=== PATIENT | male | born 1995 | race Caucasian/White ===

== ENCOUNTER 2016-07-11 06:43 | Inpatient (IN) | payer OTHER ==
[2016-07-11] MEDS ORDERED: NORMAL SALINE 1000 ML 1,000 ML IV ONE (07:56)
--- NOTE | 2016-07-11 07:57 | ER Document Report ---
ED GI/ - General Chief Complaint: Abdominal Pain Stated Complaint: STOMACH PAIN Time seen by provider: 07:56 Mode of Arrival: Ambulatory Information source: Patient Notes: 20 yo male c/o RLQ abdominal pain for 2 days. worse last night causing vomit x 2. No diarrhea. Unknown last BM. Hurts more with movement and leg movement. No injury. No testicular or penis pain. No fever. Still has appendix. TRAVEL OUTSIDE OF THE [place] IN LAST 30 DAYS: No - Related Data Allergies/Adverse Reactions: No Known Allergies Allergy (Verified 07/11/16 09:15) Home Medications: Current Home Medications No Home Medications 07/11/16 [History] Past Medical History - General Information source: Patient - Social History Smoking Status: Current Every Day Smoker Chew tobacco use (# tins/day): Yes Frequency of alcohol use: None Drug Abuse: None Lives with: Spouse/Significant other Family History: Reviewed & Not Pertinent Patient has suicidal ideation: No Patient has homicidal ideation: No - Medical History Medical History: Negative Surgical Hx: Negative - Immunizations Hx Diphtheria, Pertussis, Tetanus Vaccination: No Review of Systems - Review of Systems Constitutional: No symptoms reported EENT: No symptoms reported Cardiovascular: No symptoms reported Respiratory: No symptoms reported Gastrointestinal: See HPI Genitourinary: No symptoms reported Male Genitourinary: No symptoms reported Musculoskeletal: No symptoms reported Skin: No symptoms reported Hematologic/Lymphatic: No symptoms reported Neurological/Psychological: No symptoms reported Physical Exam - Vital signs Vitals: Temp Pulse Resp BP Pulse Ox 98.1 F 69 14 135/75 H 96 07/11/16 06:51 07/11/16 06:51 07/11/16 06:51 07/11/16 06:51 07/11/16 06:51 Interpretation: Normal - General General appearance: Appears well, Alert In distress: None - HEENT Head: Normocephalic, Atraumatic Eyes: Normal Pupils: PERRL Neck: Supple - Respiratory Respiratory status: No respiratory distress Chest status: Nontender Breath sounds: Normal Chest palpation: Normal - Cardiovascular Rhythm: Regular Heart sounds: Normal auscultation Murmur: No - Abdominal Inspection: Normal Distension: No distension Bowel sounds: Normal Tenderness: Tender - rlq but moresore right flank Organomegaly: No organomegaly. No: Hepatomegaly, Splenomegaly - Back Back: Normal, Tender - right flank - Extremities General upper extremity: Normal inspection, Nontender, Normal color, Normal ROM , Normal temperature General lower extremity: Normal inspection, Nontender, Normal color, Normal ROM , Normal temperature, Normal weight bearing. No: Hue's sign - Neurological Neuro grossly intact: Yes Cognition: Normal Orientation: AAOx4 [place] Coma Scale Eye Opening: Spontaneous [place] Coma Scale Verbal: Oriented [place] Coma Scale Motor: Obeys Commands [place] Coma Scale Total: 15 Speech: Normal Motor strength normal: LUE, RUE, LLE, RLE Sensory: Normal - Psychological Associated symptoms: Normal affect, Normal mood - Skin Skin Temperature: Warm Skin Moisture: Dry Skin Color: Normal Skin irregularity: negative: Rash Course - Re-evaluation Re-evalutation: 07/11/16 09:[address] on [address] scan called to Dr. Mckeon and will call me right back. - Vital Signs Vital signs: Temp Pulse Resp BP Pulse Ox 98.1 F 63 16 138/77 H 98 07/11/16 21:28 07/11/16 21:28 07/11/16 21:28 07/11/16 21:28 07/11/16 21:28 - Laboratory Result Diagrams: 07/11/16 08:35 07/11/16 08:35 Laboratory results interpreted by me: 07/11/16 08:35 WBC 10.7 H Discharge - Discharge Clinical Impression: Acute appendicitis Qualifiers: Acute appendicitis type: unspecified acute appendicitis type Qualified Code(s) : K35.80 - Unspecified acute appendicitis Condition: Stable Disposition: ADMITTED INPATIENT Admitting Provider: Surgicalist Unit Admitted: Surgical Floor
[2016-07-11 08:53] LABS: APPEARANCE,URINE CLEAR; BILIRUBIN,URINE NEGATIVE (NEGATIVE); CALCIUM OXALATE CRYSTALS,URINE FEW /HPF; GLUCOSE, URINE NEGATIVE (NEGATIVE); KETONES,URINE NEGATIVE (NEGATIVE); LEUKOCYTE ESTERASE,URINE NEGATIVE (NEGATIVE); NITRITE,URINE NEGATIVE (NEGATIVE); PROTEIN,URINE NEGATIVE (NEGATIVE); URINE SPECIFIC GRAVITY 1.023; UROBILINOGEN,URINE NEGATIVE mg/dL (<2.0)
[2016-07-11 09:12] LABS: ABSOLUTE EOSINOPHILS # (AUTO) 0.2 10^3/uL (0.0-0.6); ABSOLUTE LYMPHOCYTES (AUTO) 1.7 10^3/uL (0.5-4.7); ABSOLUTE MONOCYTES (AUTO) 0.8 10^3/uL (0.1-1.4); BASOPHILS % (AUTO) 0.3 % (0-2); EOSINOPHILS % (AUTO) 1.9 % (0-6); HEMATOCRIT 40.5 % (37.9-51.0); HGB HCT DIFFERENCE 1.5; LYMPHOCYTES % (AUTO) 15.6 % (13-45); MEAN CORPUSCULAR HGB CONC 34.5 g/dL (32.0-36.0); MEAN CORPUSCULAR VOLUME 81 fl (80-97); MONOCYTES % (AUTO) 7.3 % (3-13); RED BLOOD COUNT 4.99 10^6/uL (4.35-5.55); RED CELL DISTRIBUTION WIDTH 12.6 % (11.5-14.0); SEGMENTED NEUTROPHILS % (AUTO) 74.9 % (42-78); WHITE BLOOD COUNT 10.7 10^3/uL (4.0-10.5)
[2016-07-11 09:28] LABS: ALANINE AMINOTRANSFERASE 49 U/L (21-72); ALBUMIN 4.1 g/dL (3.5-5.0); ALKALINE PHOSPHATASE 80 U/L (38-126); ANION GAP 16 (5-19); ASPARTATE AMINO TRANSFERASE 22 U/L (17-59); BILIRUBIN,TOTAL 0.5 mg/dL (0.2-1.3); BLOOD UREA NITROGEN 15 mg/dL (7-20); CALCIUM 9.2 mg/dL (8.4-10.2); CARBON DIOXIDE 25 mmol/L (22-30); CHLORIDE 102 mmol/L (98-107); CREATININE RESULT 0.85 mg/dL (0.52-1.25); GLUCOSE 96 mg/dL (75-110); POTASSIUM 4.3 mmol/L (3.6-5.0); SODIUM 142.7 mmol/L (137-145); TOTAL PROTEIN 6.6 g/dL (6.3-8.2)
[2016-07-11] MEDS ORDERED: VECURONIUM BROMIDE INJ 10 MG VIAL IV ONE (12:16)
[2016-07-11] MEDS ORDERED: NEOSTIGMINE METHYLSULFATE 10 MG/10 ML VIAL ONE (12:16)
[2016-07-11] MEDS ORDERED: DEXAMETHASONE SOD PHOSPHATE INJ 4 MG/1 ML VIAL ONE (12:16)
[2016-07-11] MEDS ORDERED: GLYCOPYRROLATE INJ 0.4 MG/2 ML VIAL ONE (12:16)
[2016-07-11] MEDS ORDERED: LIDOCAINE 2% INJ-PF (20 MG/ML) 10 ML AMPUL ONE (12:16)
[2016-07-11] MEDS ORDERED: ONDANSETRON HCL INJ/PF 4 MG/2 ML SDV ONE (12:16)
[2016-07-11] MEDS ORDERED: SUCCINYLCHOLINE CHLORIDE INJ 200 MG/10 ML VIAL ONE (12:16)
[2016-07-11] MEDS ORDERED: RINGERS SOLUTION,LACTATED 1,000 ML IV PRN (13:24)
[2016-07-11] MEDS ORDERED: PROPOFOL INJ 200 MG/20 ML VIAL IV ONE (14:14)
[2016-07-11] MEDS ORDERED: MIDAZOLAM 2 MG/2 ML INJ ONE (14:14)
[2016-07-11] MEDS ORDERED: FENTANYL CITRATE INJ/PF 250 MCG/5 ML AMPULE ONE (14:14)
[2016-07-11] MEDS ORDERED: LIDOCAINE 1% INJ-PF (10 MG/ML) 30 ML SDV ONE (14:24)
[2016-07-11] MEDS ORDERED: BUPIVACAINE HCL 0.25% /EPINEPHRINE INJ/PF 30 ML SDV ONE (14:24)
--- NOTE | 2016-07-11 14:43 | PDOC H&P ---
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 The pain was in the right lower quadrant. The pain was 1/10. The pain continued to worsen throughout the day on Saturday, throughout the day on Saturday, through the night and into Saturday morning. He had nausea and vomiting Saturday evening 2. The pain is made worse with movement. Although the pain started out minor in severity on Saturday, on Saturday night and Saturday morning the pain was 8/10. The pain remained in his right lower quadrant and did not radiate. He denies fevers, chills, dizziness, lightheadedness, headaches, vision changes, seizures, tremors , chest pain, shortness of breath, leg swelling, pain with defecation, pain with urination, blood in the stools, blood in his urine, loss of appetite. Past Medical History Medical History: None Psychiatric Medical History: Denies: Depression Past Surgical History Past Surgical History: Reports: Other - [place] teeth removal Social History Information Source: Patient Lives with: Spouse/Significant other - , 19 weeks Smoking Status: Current Every Day Smoker Cigarettes Packs Per Day: 0.5 Frequency of Alcohol Use: Rare - 6 beers per month Hx Recreational Drug Use: No Drugs: None Hx Prescription Drug Abuse: No - Advance Directive Resuscitation Status: Full Code Family History Family History: DM, Hypertension Parental Family History Reviewed: Yes Children Family History Reviewed: NA Sibling(s) Family History Reviewed.: Yes Medication/Allergy Home Medications: No Home Medications 07/11/16 Allergies/Adverse Reactions: No Known Allergies Allergy (Verified 07/11/16 09:15) Review of Systems All systems: reviewed and no additional remarkable complaints except as stated Physical Exam Vital Signs: Temp Pulse Resp BP Pulse Ox 98.6 F 75 16 125/72 100 07/11/16 13:31 07/11/16 13:31 07/11/16 13:31 07/11/16 13:31 07/11/16 13:31 General appearance: PRESENT: no acute distress Head exam: PRESENT: normocephalic Eye exam: PRESENT: EOMI Mouth exam: PRESENT: tongue midline Neck exam: ABSENT: JVD, lymphadenopathy, tenderness, thyromegaly Respiratory exam: PRESENT: clear to auscultation joni, unlabored Cardiovascular exam: PRESENT: RRR. ABSENT: diastolic murmur, systolic murmur GI/Abdominal exam: PRESENT: soft, tenderness - Severe pain in right lower quadrant. Minimal pain elsewhere.. ABSENT: distended, hernia Extremities exam: ABSENT: pedal edema, tenderness Musculoskeletal exam: ABSENT: deformity, tenderness Neurological exam: PRESENT: alert, oriented to person, oriented to place, oriented to time, oriented to situation Psychiatric exam: PRESENT: appropriate affect, normal mood Skin exam: ABSENT: jaundice, rash Results Impressions: Abdomen/Pelvis CT 07/11/16 08:35 IMPRESSION: Acute appendicitis Status: Image reviewed by me Assessment & Plan - Diagnosis (1) Acute appendicitis Qualifiers: Acute appendicitis type: unspecified acute appendicitis type Qualified Code(s): K35.80 - Unspecified acute appendicitis Is this a current diagnosis for this admission?: YesPlan: Recommended laparoscopic appendectomy. I discussed pre-and postoperative expectations and limitations. We discussed nonoperative management with antibiotics versus operative management. I discussed risks, benefits and alternatives. Risk included but not limited to , heart attack, stroke, blood clots in legs, blood clots in lungs, pneumonia, hernia, bleeding, infection, damage to surrounding structures such as bladder, bowel, blood vessels and ureters. We discussed that the etiology of the abdominal pain may not be the appendix, in which case we will perform an incidental appendectomy and look for other pathology. Understands and wishes to proceed with laparoscopic appendectomy. LR at 150. Invanz 1 g IV. Nothing by mouth. Void long line teamster to the OR. SCDs.
[2016-07-11] MEDS ORDERED: PROMETHAZINE HCL INJ 25 MG/1 ML VIAL IV PRN ×2 (14:56)
[2016-07-11] MEDS ORDERED: FENTANYL CITRATE INJ/PF 100 MCG/2 ML AMPUL IV PRN ×3 (14:56)
[2016-07-11] MEDS ORDERED: DIPHENHYDRAMINE HCL 50 MG/ML VIAL IV PRN (14:56)
[2016-07-11] MEDS ORDERED: MEPERIDINE HCL/PF INJ 25 MG/1 ML DISP.SYRIN IV PRN (14:56)
[2016-07-11] MEDS ORDERED: MORPHINE SULFATE 10 MG/ML INJ IV PRN (14:56)
[2016-07-11] MEDS ORDERED: ERTAPENEM SODIUM 1 GM in NORMAL SALINE 50 ML IV ONE (15:00)
--- NOTE | 2016-07-11 15:48 | Operative Report ---
Operative Report DATE OF SURGERY: 07/11/16 PREOPERATIVE DIAGNOSIS: Acute appendicitis POSTOPERATIVE DIAGNOSIS: Acute appendicitis OPERATION: Laparoscopic Appendectomy SURGEON: WILDER LEVY ANESTHESIA: GA TISSUE REMOVED OR ALTERED: Appendix COMPLICATIONS: None noted ESTIMATED BLOOD LOSS: minimal INTRAOPERATIVE FINDINGS: Acute appendicitis PROCEDURE: The patient was brought to the operative suite and placed supine on the OR table. Timeout was performed. Antibiotics were administered. Padding and positioning was appropriate. The patient was induced, intubated and maintained on general endotracheal anesthesia throughout the procedure. Patient was prepped and draped in the normal sterile fashion. The skin above the umbilicus was infiltrated with local anesthetic. A 5 mm incision was made. A Osiris and Adson were used to dissect down to the level of the fascia, grasped the fascia and elevate it. The patient had a small fascial defect at the base the umbilicus which was dissected through. The camera in the 5 mm Visiport trocar was advanced through the defect under direct visualization. Entry into the abdominal cavity was confirmed. High-flow insufflation was connected. Pneumoperitoneum of 15 mmHg was obtained and maintained throughout the procedure. Next, the 5 mm suprapubic and the 12 mm left lower quadrant incisions were placed in normal location and fashion under direct visualization after infiltration with local anesthetic. Instruments were introduced in the abdominal cavity was inspected. There was scant murky fluid in the pelvis. The terminal ileum and cecum appeared normal. The distal half of appendix was dilated, turgid and inflamed indicative of acute appendicitis. The appendix was elevated. A window was made at the base the appendix adjacent to the cecum. The echelon 45 blue load stapler was used to fire across the base the appendix adjacent to the cecum. The mesoappendix was taken down with multiple firings of the Harmonic scalpel. The appendix was placed in an Endo Catch bag and removed through the 12 mm trocar site and sent to pathology for further analysis. The fluid in the pelvis was suctioned free of the abdominal cavity. The pelvis was then irrigated and suctioned free of any affluent which was clear. The right lower quadrant was inspected. Staple line was intact. Residual fluid in the right lower quadrant was suctioned. The abdominal cavity was surveyed and was unremarkable. Trocar sites were infiltrated with more local anesthetic. The left lower quadrant trocar site was closed at the level of the fascia with 0 Vicryl suture using the Endo Close needle. Pneumoperitoneum was released. Trochars were removed. Incisions were closed at the level of the skin with 4-0 Monocryl. The closed incisions were dressed with benzoin tincture, Steri-Strips and Band-Aids. All lap, needle and sponge counts were correct. The patient tolerated procedure well and was taken recovery in stable condition.
[2016-07-11] MEDS: HYDROCODONE/ACETAMINOPHEN 5-325 MG TABLET PO PRN ×2 (17:52→21:44)
[2016-07-12] MEDS: HYDROCODONE/ACETAMINOPHEN 5-325 MG TABLET PO PRN (08:01)
[2016-07-12 08:24] VITALS: BP 125/72
--- NOTE | 2016-07-12 09:14 | DISCHARGE SUMMARY E ---
Discharge Summary NAME: JAYY TUTTLE : 1995 AGE: 20Y ADMITTED: 07/11/2016 DISCHARGED: 07/12/2016 REASON FOR ADMISSION: Acute abdominal pain. SUMMARY OF HOSPITALIZATION: The patient is a 20-year-old white male with history of acute abdominal pain. He was evaluated in the emergency department and was found by CT scan to have evidence of acute appendicitis. He was admitted to surgicalist service and taken to the operating room by Dr. Jose Landrum where he underwent laparoscopic appendectomy. The appendix was found to be acutely inflamed. He tolerated the procedure well without complication. The following morning he was doing well, tolerating a diet, voiding, and had no complications. He was ready for discharge home. FINAL DIAGNOSIS: Acute appendicitis, status post laparoscopic appendectomy. DISPOSITION: The patient will be discharged home in the care of his family. Followup with Dr. Burrell or RUTHANN Corrales at [facility] in approximately 2 weeks. He will take pain medication as prescribed. He will also take a stool softener daily. DICTATING PHYSICIAN: DAJUAN BURRELL M.D. [id number] PHY#: [id number] ID: [id number] JOB#: [id number] ACCT: [id number] cc:DAJUAN BURRELL M.D., PRINCE Russo >
== END 2016-07-12 10:12 | disposition home or self-care (01) | DRG 343 ==
LOC: ER 06:43 → EH 10:41 → 2N 10:59
PROVIDERS: ATTEND Surgery
PROC: 0DTJ4ZZ Resection of Appendix, Percutaneous Endoscopic Approach (ICD-10-PCS; principal; 2016-07-11 14:30)
DX: K35.80 Unspecified acute appendicitis (principal); F17.210 Nicotine dependence, cigarettes, uncomplicated
CPT/HCPCS: 36415; 74177; 80053; 81001; 840; 85025; 88304; 94799; 99285; J0330; J1100; J2250; J2405; J2704; J3010; J3490; J7030